=== PATIENT | female | born 1980 | race African-American/Black ===

== ENCOUNTER 2024-05-12 17:27 | Emergency (ER) | payer SELFPAY ==
[~2024-05-12] VITALS: Ht 172.7 cm; Wt 73.0 kg
[2024-05-12 17:36] VITALS: BP 138/91; PULSE 98; RESP 18; TEMP 98.1; O2SAT 99
== END 2024-05-12 17:43 | disposition left against medical advice (07) ==
LOC: ER 17:27
DX: S40.812A Abrasion of left upper arm, initial encounter (principal); X58.XXXA Exposure to other specified factors, initial encounter; Y93.89 Activity, other specified; Y92.89 Other specified places as the place of occurrence of the external cause; Y99.8 Other external cause status; Z53.21 Procedure and treatment not carried out due to patient leaving prior to being seen by health care provider